=== PATIENT | male | born 1995 | race African-American/Black ===

== ENCOUNTER 2020-08-04 00:13 | Emergency (ER) | payer SELFPAY | END 2020-08-04 01:19 | disposition left against medical advice (07) | LOC: ER 00:13 | DX: R10.9 Unspecified abdominal pain (principal); Z53.21 Procedure and treatment not carried out due to patient leaving prior to being seen by health care provider ==

== ENCOUNTER 2020-08-23 20:33 | Emergency (ER) | payer BC ==
[~2020-08-23] VITALS: Ht 177.8 cm; Wt 81.8 kg
[2020-08-23 21:30] VITALS: BP 140/67
[2020-08-23] MEDS ORDERED: IBUP-1007 PO (22:31)
[2020-08-23] MEDS ORDERED: CYCL10TA2 PO (22:31)
--- NOTE | 2020-08-23 22:32 | PHYS DOC ---
Past Medical History Past Medical History: No Pertinent History Past Surgical History: No Surgical History Smoking Status: Current Every Day Smoker Alcohol Use: None General Adult EDM: Chief Complaint: BACK PAIN - NO INJURY HPI: HPI: Patient is a 25 year old male present to the emergency department with complaints of low back pain that radiates down left leg for the past approximately 6 weeks after stumbling over a broom at work. He denies falling. He reports a 8/10 pain on a 1-10 pain scale. Pt denies recent fever, chills, chest pain, shortness of breath, abdominal pain, nausea, vomiting, diarrhea, constipation, skin rashes, urinary problems depression, anxieties, homicidal or suicidal ideation. Denies headaches or visual changes. Review of Systems: Review of Systems: Constitutional: Denies fever or chills. Eyes: Denies change in visual acuity. HENT: Denies nasal congestion or sore throat. Respiratory: Denies cough or shortness of breath. Cardiovascular: Denies chest pain or edema. [] GI: Denies abdominal pain, nausea, vomiting, constipation or diarrhea. : Denies dysuria. Musculoskeletal: Reports low left sided back pain with radiaton down left buttocks and leg. Integument: Denies rash. Neurologic: Denies headache, focal weakness or sensory changes. Lymphatic: Denies swollen glands. Psychiatric: Denies depression or anxiety. Heart Score: Risk Factors: Risk Factors: DM, Current or recent (<one month) smoker, HTN, HLP, family history of CAD, obesity. Risk Scores: Score 0 - 3: 2.5% MACE over next 6 weeks - Discharge Home Score 4 - 6: 20.3% MACE over next 6 weeks - Admit for Clinical Observation Score 7 - 10: 72.7% MACE over next 6 weeks - Early Invasive Strategies Current Medications: Pt denies taking Rx or OTC medications Allergies: Allergies: Allergies Coded Allergies Type Severity Reaction Last Updated Verified No Known Drug Allergies 08/23/20 No Physical Exam: PE: Constitutional: Well developed, well nourished, no acute distress, non-toxic appearance. HENT: Normocephalic, atraumatic, bilateral external ears normal, oropharynx moist, no oral exudates, nose normal. [] Eyes: PERRLA, EOMI, conjunctiva normal, no discharge. [] Neck: Normal range of motion, no tenderness, supple, no stridor. [] Cardiovascular:Heart rate regular rhythm, no murmur [] Lungs & Thorax: Bilateral breath sounds clear to auscultation [] Abdomen: Bowel sounds normal, soft, no tenderness, no masses, no pulsatile masses. [] Skin: Warm, dry, no erythema, no rash. [] Back: No CVA tenderness. left sided lumbar pain with palpation, no midline tenderness, no saddle anesthesia. Full AROM/PROM bilateral LE's Extremities: No tenderness, no cyanosis, no clubbing, ROM intact, no edema. [] Neurologic: Alert and oriented X 3, normal motor function, normal sensory function, no focal deficits noted. [] Psychologic: Affect normal, judgement normal, mood normal. [] Current Patient Data: Vital Signs: Vital Signs Date Time Temp Pulse Resp B/P (MAP) Pulse Ox O2 Delivery O2 Flow Rate FiO2 08/23/20 21:30 98.2 73 20 140/67 (91) 98 Room Air 98.2 EKG: EKG: [] Radiology/Procedures: Radiology/Procedures: [] Course & Med Decision Making: Course & Med Decision Making Pertinent Labs and Imaging studies reviewed. (See chart for details) 25 yo male VSS, reports low back paon for the past 6 weeks after stumbling over broom, physical exam did not reveal saddle anesthesia, exam consistent with lumbar strain versus sciatica exacerbation. Pt refused offered imaging, pt requested a work note for today and tomorrow. Given 600mg motrin PO, Discharge to home with Rx, Motrin and Flexeril. Discussed stretching and strengthening exercises, follow up with work comp doctor or primary MD for continuing back pain. A work was given for two days off. Pt gave verbal understanding of home care instructions, Follow up care, return to ER concerns. Pt had no further questions or concerns, discharged to home without incident. Dragon Disclaimer: Dragon Disclaimer: This electronic medical record was generated, in whole or in part, using a voice recognition dictation system. Departure Departure Impression: Primary Impression: Lumbar strain Qualified Codes: S39.012A - Strain of muscle, fascia and tendon of lower back, initial encounter Disposition: 01 DC HOME SELF CARE/HOMELESS Condition: GOOD Referrals: NO PCP (PCP) Patient Instructions: Back Pain, Adult Additional Instructions: Take medications as prescribed return to the emergency department for worsening symptoms, follow-up with your doctor soon. Scripts Cyclobenzaprine Hcl (CYCLOBENZAPRINE HCL) 10 Mg Tablet 10 MG PO TID, #15 TAB 0 Refills Prov: HEMA COOPER APRN 08/23/20 Ibuprofen (IBUPROFEN) 600 Mg Tablet 600 MG PO PRN Q6HRS PRN for INFLAMMATION, #20 TAB 0 Refills Prov: HEMA COOPER APRN 08/23/20 HEMA COOPER APRN Aug 23, 2020 22:32
[2020-08-23] MEDS ORDERED: IBUPROFEN 200 MG TABLET. PO ONE (23:00)
== END 2020-08-23 22:45 | disposition home or self-care (01) ==
LOC: ER 20:33
DX: S39.012A Strain of muscle, fascia and tendon of lower back, initial encounter (principal); F17.200 Nicotine dependence, unspecified, uncomplicated; W22.8XXA Striking against or struck by other objects, initial encounter; Y93.89 Activity, other specified; Y92.69 Other specified industrial and construction area as the place of occurrence of the external cause; Y99.0 Civilian activity done for income or pay
CPT/HCPCS: 99283